=== PATIENT | female | born 1990 | race Caucasian/White ===

== ENCOUNTER 2021-04-18 00:16 | Inpatient (IN) | payer OTHER ==
[~2021-04-18] VITALS: Ht 162.6 cm; Wt 102.1 kg
[2021-04-18 01:44] LABS: HCT 38.1 % (37.0-47.0); HGB 13.2 g/dl (12.5-16.0); MCH 29.5 pg (25.0-31.0); MCHC 34.6 g/dL (32.0-36.0); MPV 10.5 fL (6.0-9.5); RBC 4.48 M/uL (4.20-5.40); RDW 13.4 % (11.5-14.0); WBC 11.2 K/uL (4.0-10.5)
[2021-04-18 01:46] LABS: BILIRUBIN NEGATIVE (NEGATIVE); BLOOD TRACE-INTACT Ery/uL (NEGATIVE); CLARITY CLEAR (CLEAR); COLOR YELLOW (YELLOW); GLUCOSE (U) NORMAL (NORMAL); LEUKOCYTES NEGATIVE Leu/uL (NEGATIVE); NITRITE NEGATIVE (NEGATIVE); PROTEIN NEGATIVE (NEGATIVE); UROBILINOGEN 0.2 mg/dL (0.2-1.0); pH 6.5 (5.0-9.0)
[2021-04-18 01:53] LABS: BACTERIA 1+; URINARY WBC RARE
[2021-04-18 01:56] LABS: ALBUMIN 2.7 g/dL (3.4-5.0); BILIRUBIN - TOTAL 0.6 mg/dL (0.2-1.0); BUN/CREAT RATIO (CALC) 16.1 RATIO; CREATININE 0.56 mg/dL (0.51-0.95); GLOBULIN (CALCULATION) 4.2 g/dL; POTASSIUM 3.7 mmol/L (3.5-5.1); TOTAL PROTEIN 6.9 g/dL (6.4-8.2)
[2021-04-18 08:31] LABS: PROTEIN:CREATININE 0.17 RATIO; URINE CREATININE 113.48 mg/dL (29.00-226.00); URINE TOTAL PROTEIN-RANDOM 20.1 mg/dL (<11.9)
[2021-04-19 07:51] LABS: HCT 37.2 % (37.0-47.0); HGB 12.6 g/dl (12.5-16.0); MCH 29.6 pg (25.0-31.0); MCHC 33.9 g/dL (32.0-36.0); MCV 87.3 fL (78.0-100.0); MPV 10.1 fL (6.0-9.5); RBC 4.26 M/uL (4.20-5.40); RDW 13.9 % (11.5-14.0); WBC 16.1 K/uL (4.0-10.5)
[2021-04-19 08:23] LABS: BILIRUBIN - TOTAL 0.8 mg/dL (0.2-1.0); BUN/CREAT RATIO (CALC) 14.5 RATIO; CREATININE 0.62 mg/dL (0.51-0.95); POTASSIUM 4.3 mmol/L (3.5-5.1)
== END 2021-04-21 11:24 | disposition home or self-care (01) | DRG 788 ==
LOC: FOD 00:16 → FOB 00:16 → FOD 00:31 → FOB 00:32
PROVIDERS: Obstetrics & Gynecology; ADMIT Obstetrics & Gynecology
PROC: 10D00Z1 Extraction of Products of Conception, Low, Open Approach (ICD-10-PCS; principal; 2021-04-18 16:10)
DX: O76 Abnormality in fetal heart rate and rhythm complicating labor and delivery (principal); O14.94 Unspecified pre-eclampsia, complicating childbirth; Z37.0 Single live birth; Z3A.37 37 weeks gestation of pregnancy; O24.429 Gestational diabetes mellitus in childbirth, unspecified control; Z20.822 Contact with and (suspected) exposure to COVID-19; O99.214 Obesity complicating childbirth; O34.211 Maternal care for low transverse scar from previous cesarean delivery
CPT/HCPCS: 36415; 80053; 81001; 82009; 82570; 82962; 84156; J0456; J0690; J1200; J1885; J2001; J2274; J2370; J7030; J7040; J7050; J7120; J7121; U0002